=== PATIENT | male | born 1970 | race Caucasian/White ===

== ENCOUNTER 2017-06-19 08:55 | Emergency (ER) | payer SELFPAY ==
[~2017-06-19] VITALS: Ht 177.8 cm; Wt 84.0 kg
[~2017-06-19 08:55] MED LIST: ASPIRIN LOW81 M1 PO; ATORVASTATI80 MG/TAB PO; EQ ASPIRIN ADUL81 MG PO; LISINOP/HCTZ1 TA1 PO; METOPROL TAR25 M1 PO
[2017-06-19 09:03] VITALS: BP 203/137
[2017-06-19] MEDS ORDERED: MOTRIN800 MG PO (09:40)
[2017-06-19] MEDS ORDERED: TRAMADOL HYDROC50 MG PO (09:40)
[2017-06-19] MEDS ORDERED: BACTRIM DS1 TAB PO (09:40)
== END 2017-06-19 09:51 | disposition home or self-care (01) | DRG 603 ==
LOC: ED 08:55
PROC: 0H94XZZ Drainage of Neck Skin, External Approach (ICD-10-PCS; principal; 2017-06-19)
DX: L02.11 Cutaneous abscess of neck (principal); F17.210 Nicotine dependence, cigarettes, uncomplicated; I10 Essential (primary) hypertension; K13.21 Leukoplakia of oral mucosa, including tongue

== ENCOUNTER 2017-10-26 05:27 | Emergency (ER) | payer SELFPAY ==
[~2017-10-26] VITALS: Ht 177.8 cm; Wt 75.0 kg
[~2017-10-26 05:27] MED LIST changes: +BACTRIM DS1 TAB PO; +MOTRIN800 MG PO; +TRAMADOL HYDROC50 MG PO
[2017-10-26 05:57] LABS: HEMOGLOBIN 18.1 g/dl (14.0-18.0); IMMATURE GRANULOCYTES 0.5 % (0.0-1.0); MEAN CELL VOLUME 102.4 fL CALC (80.0-100.0); MEAN CORPUSCULAR HGB 36.3 pG CALC (26.0-32.0); MEAN CORPUSCULAR HGB CONC 35.5 g/L CALC (32.0-36.0); NEUT# 5.81 thou/uL (1.82-7.42); RED BLOOD COUNT 4.98 mill/uL (4.70-6.10); RED CELL DISTRI WIDTH 11.3 % (11.5-15.5)
[2017-10-26 06:15] LABS: ALBUMIN 4.4 g/dL (3.2-5.0); ALKALINE PHOSPHATASE 110 u/l (38-126); ANION GAP 20 (6-22 (CALC)); BILIRUBIN, TOTAL 0.7 mg/dL (0.0-1.4); BUN 5 mg/dL (9-20); BUN/CREATININE RATIO 6 (12-20 (CALC)); CARBON DIOXIDE 23 mmol/l (22-30); CHLORIDE 102 mmol/l (95-108); CREATININE 0.8 mg/dL (0.7-1.3); GFR > 60 ML/MIN (>=60 (CALC)); GFR FOR AFR.AMER. > 60 ML/MIN (>=60 (CALC)); SGOT/AST 48 u/l (17-59); SGPT/ALT 62 u/l (21-72); SODIUM 141 mmol/l (137-146); TOTAL PROTEIN 7.9 g/dL (6.3-8.2)
[2017-10-26 06:20] LABS: PROTHROMBIN TIME 11.3 SECONDS (9.0-12.5)
[2017-10-26 06:26] LABS: MYOGLOBIN 130 ng/mL (0 - 121)
[2017-10-26 07:25] VITALS: BP 165/105
== END 2017-10-26 07:23 | disposition short-term general hospital (02) | DRG 313 ==
LOC: ED 05:27
PROVIDERS: Emergency Medicine
DX: R07.9 Chest pain, unspecified (principal); R74.8 Abnormal levels of other serum enzymes; I10 Essential (primary) hypertension; F10.10 Alcohol abuse, uncomplicated; F17.210 Nicotine dependence, cigarettes, uncomplicated; I25.2 Old myocardial infarction

== ENCOUNTER 2021-04-14 06:25 | Observation (INO) | payer SELFPAY ==
[~2021-04-14] VITALS: Ht 177.8 cm; Wt 73.0 kg
[2021-04-14] VITALS (12 sets, daily range): BP systolic 140–194; BP diastolic 64–94
--- NOTE | 2021-04-14 06:25 | NUR ---
PT AMB TO ROOM FOR BEDSIDE TRIAGE, STROKE ALERT CALLED. DR QUILES BEDSIDE FOR EVAL. PT TO CT STAT.
[2021-04-14 06:52] LABS: GFR > 60 ML/MIN (>=60 (CALC)); GFR FOR AFR.AMER. > 60 ML/MIN (>=60 (CALC))
[2021-04-14 06:53] LABS: HEMOGLOBIN 17.4 g/dl (14.0-18.0); IMMATURE GRANULOCYTES 0.2 % (0.0-5.0); MEAN CELL VOLUME 105.7 fL CALC (80.0-100.0); MEAN CORPUSCULAR HGB 35.4 pG CALC (26.0-32.0); MEAN CORPUSCULAR HGB CONC 33.5 g/dL CAL (32.0-36.0); NEUT# 6.16 thou/uL (1.82-7.42); RED BLOOD COUNT 4.92 mill/uL (4.70-6.10); RED CELL DISTRI WIDTH 11.5 % (11.5-15.5)
--- NOTE | 2021-04-14 07:00 | NUR ---
REPORT RECEIVED FROM PRITESH RN
[2021-04-14 07:09] LABS: PROTHROMBIN TIME 10.7 SECONDS (9.0-12.5)
[2021-04-14 07:11] LABS: ALBUMIN 4.4 g/dL (3.2-5.0); ALKALINE PHOSPHATASE 109 u/l (38-126); ANION GAP 16 (6-22 (CALC)); BILIRUBIN, TOTAL 0.9 mg/dL (0.0-1.4); BUN 5 mg/dL (9-20); BUN/CREATININE RATIO 7 (12-20 (CALC)); CARBON DIOXIDE 21 mmol/l (22-30); CHLORIDE 101 mmol/l (95-108); CREATININE 0.8 mg/dL (0.7-1.3); GFR > 60 ML/MIN (>=60 (CALC)); GFR FOR AFR.AMER. > 60 ML/MIN (>=60 (CALC)); POTASSIUM 4.1 mmol/l (3.5-5.1); SGOT/AST 52 u/l (17-59); SODIUM 135 mmol/l (137-146); TOTAL PROTEIN 8.2 g/dL (6.3-8.2)
--- NOTE | 2021-04-14 08:10 | NUR ---
IV MEDS INFUSING WITHOUT DIFFICULTY. VITALS STABLE. BP IMPROVED. OBTAINING URINE SPECIMEN AT THIS TIME. CALL LIGHT WITHIN REACH.
[2021-04-14 08:33] LABS: URINE BILIRUBIN - DIPSTICK NEGATIVE (NEGATIVE); URINE BLOOD DIPSTICK NEGATIVE (NEGATIVE); URINE COLOR STRAW; URINE GLUCOSE - DIPSTICK >=1000 mg/dL (NEGATIVE); URINE KETONE NEGATIVE (NEGATIVE); URINE LEUK ESTERASE NEGATIVE (NEGATIVE); URINE NITRITE - DIPSTICK NEGATIVE (Negative); URINE PROTEIN - DIPSTICK NEGATIVE (NEG-TRACE); URINE SPECIFIC GRAVITY <=1.005; URINE UROBILINOGEN - DIPSTICK 0.2 E.U./dL (0.2)
--- NOTE | 2021-04-14 09:00 | NUR ---
NO CHANGES. IV MEDS CONTINUE TO INFUSE. PENDING ADMISSION AT THIS TIME. NO CONCERNS VOICED. BP REMAINS STABLE.
--- NOTE | 2021-04-14 09:40 | NUR ---
REPORT CALLED TO ADILIA BARROSO IN ICU.
--- NOTE | 2021-04-14 10:22 | NUR ---
PT ARRIVES TO ROOM 6 IN ICU, ALERT AND ORIENTED X 3. LUNGS CLEAR, RA. LEFT ARM NUMB, CAN STILL MOVE NORMALLY. ADMISSION ASSESSMENTS COMPLETED, NO ACUTE DISTRESS NOTED. PT REFUSED OFFER FOR NICOTINE PATCH.
--- NOTE | 2021-04-14 16:56 | NUR ---
PT HAS BEEN TO MRI AND BACK, AWAITS RESULTS. ANKLE BRACELET PLACED BY POLICE WAS CUT OFF BY THEM FOR THE EXAM AND PT IS TO HAVE IT REPLACED PRIOR TO DISCHARGE TO HOME. PT AT REST IN THE BED.
--- NOTE | 2021-04-14 20:00 | NUR ---
PATIENT IS ALERT AND ORIENTED X4. DENIES ANY PAIN, DIZINESS OR BLURRY VISION. ANSWERS QUESTIONS APPROPRIATELY, FOLLOW DIRECTIONS APPROPRIATELY. ONLY DEFICIT IS WEAK CLIENT RELATIONSHIP EXECUTIVE, OTHERWISE NEUROLOGICALLY INTACT, NO DRIFTING, NO DECREASED SENSATION, CLEAR SPEECH, COORDINATION INTACT. PT REPORTS HE IS REGAINING STRENGTH ON HIS L-ARM/HAND. NURSE ASSESSMENT PERFORMED. POC DISCUSSED FOR TONIGHT, PATIENT UNDERSTANDS AND AGREES. ALSO EDUCATED ON LIFESTYLE CHANGES TO PREVENT STROKE. IV INTACT, SALINE LOCKED, SR ON TELEMETRY, HR 70'S. SPO2 97%, ON RA, NO SOB NOTED. SKIN INTACT, WARM/DRY. SELF REPOSITIONS. USES URINAL, URINE CLEAR/YELLOW. CALL LIGHT WITHIN REACH.
--- NOTE | 2021-04-14 20:05 | NUR ---
PATIENT WAS MOVED FROM ICU 6 TO ICU 7 DUE TO BP MONITOR NOT WORKING. BP TAKEN Q1H OR NEEDED. BP NOW IS 194/79 MMHG, WILL CONTINUE TO MONITOR AND PROVIDE PRN BP MEDS IV.
--- NOTE | 2021-04-14 21:15 | NUR ---
PATIENT ABLE TO SWALLOW MEDICATION, WAS EDUCATED ABOUT IT. TOLERATES INSULIN AND LOVENOX INJECTION. REQUESTS FOOD AND A DRINK, WILL PROVIDE. NO OTHER COMPLAINTS OR NEEDS AT THIS TIME.
[2021-04-15] VITALS (12 sets, daily range): BP systolic 135–180; BP diastolic 77–103
--- NOTE | 2021-04-15 00:30 | NUR ---
patient is awake, no neuro deficits noted. reports he is not able to sleep. watches tv. no needs at thi time. call light within reach.
--- NOTE | 2021-04-15 05:24 | NUR ---
PATIENT AWAKENS EASILY WHEN SPOKEN TO. NO COMPLAINTS. NO NEW NEURO DEFICITS NOTED. CALL LIGHT WITHIN REACH. AFEBRILE. SR ON TELEMETRY, HR 70'S. BP WNL. SPO2 97% ON RA.
[2021-04-15 05:26] LABS: HEMATOCRIT 49.1 % (39.0-50.0); HEMOGLOBIN 16.5 g/dl (14.0-18.0); MEAN CELL VOLUME 106.7 fL CALC (80.0-100.0); MEAN CORPUSCULAR HGB 35.9 pG CALC (26.0-32.0); MEAN CORPUSCULAR HGB CONC 33.6 g/dL CAL (32.0-36.0); RED BLOOD COUNT 4.6 mill/uL (4.70-6.10); RED CELL DISTRI WIDTH 11.5 % (11.5-15.5)
[2021-04-15 05:46] LABS: ANION GAP 12 (6-22 (CALC)); BUN 11 mg/dL (9-20); BUN/CREATININE RATIO 13 (12-20 (CALC)); CALCULATED LDLCHOLESTEROL 111 mg/dL (62-129 (CALC)); CARBON DIOXIDE 25 mmol/l (22-30); CHLORIDE 103 mmol/l (95-108); CHOLESTEROL HDL RATIO 3.5 (<4.4 (CALC)); CREATININE 0.8 mg/dL (0.7-1.3); GFR > 60 ML/MIN (>=60 (CALC)); GFR FOR AFR.AMER. > 60 ML/MIN (>=60 (CALC)); HDL CHOLESTEROL 57 mg/dL (>=40); MAGNESIUM 1.9 mg/dL (1.6-2.3); POTASSIUM 4.6 mmol/l (3.5-5.1); SODIUM 136 mmol/l (137-146); TOTAL CHOLESTEROL 199 mg/dl (0-199); TOTAL TRIGLYCERIDES 155 mg/dl (30-149); VLDL CHOLESTROL 31 mg/dl (5-56 (CALC))
--- NOTE | 2021-04-15 08:49 | NUR ---
Patient resting comfortably in bed. States left arm "feels back to normal". No complaints and call light within reach. RN will continue to monitor.
[2021-04-15] MEDS ORDERED: ATORVASTATIN CA40 MG PO (10:07)
[2021-04-15] MEDS ORDERED: PLAVIX75 MG PO (10:07)
[2021-04-15] MEDS ORDERED: ADLT ASA LOW81 MG PO (10:07)
[2021-04-15] MEDS ORDERED: COZAAR50 MG PO (10:09)
[2021-04-15] MEDS ORDERED: METFORMIN500 M2 PO (10:11)
--- NOTE | 2021-04-15 12:27 | NUR ---
Patient recieved and signed discharge paperwork per discharge order. Patient in understanding of instructions for self care/ medications. RN educated patient on medications and self care.Patient verbalizes understanding and will follow up with pcp. IV removed and excorted/ ambulated down to the lobby.
== END 2021-04-15 12:13 | disposition home or self-care (01) | DRG 948 ==
LOC: ED 06:25 → ED-I 08:30 → ED 08:33 → ICU 08:34
PROVIDERS: Emergency Medicine; Nurse Practitioner; ADMIT Internal Medicine; ATTEND Internal Medicine
DX: R53.1 Weakness (principal); R20.2 Paresthesia of skin; I10 Essential (primary) hypertension; E11.65 Type 2 diabetes mellitus with hyperglycemia; I25.10 Atherosclerotic heart disease of native coronary artery without angina pectoris; F10.10 Alcohol abuse, uncomplicated; F17.200 Nicotine dependence, unspecified, uncomplicated; I25.2 Old myocardial infarction; T50.916A Underdosing of multiple unspecified drugs, medicaments and biological substances, initial encounter; Y90.1 Blood alcohol level of 20-39 mg/100 ml; Z95.5 Presence of coronary angioplasty implant and graft; Z91.128 Patient's intentional underdosing of medication regimen for other reason; Z91.19 Patient's noncompliance with other medical treatment and regimen; Z20.822 Contact with and (suspected) exposure to COVID-19
CPT/HCPCS: J1650; Q9967

== ENCOUNTER 2021-09-01 10:06 | Emergency (ER) | payer SELFPAY ==
[~2021-09-01] VITALS: Ht 177.8 cm; Wt 79.5 kg
[2021-09-01] VITALS (7 sets, daily range): BP systolic 156–204; BP diastolic 106–118
[~2021-09-01 10:06] MED LIST changes: +ADLT ASA LOW81 MG PO; +ATORVASTATIN CA40 MG PO; +COZAAR50 MG PO; +METFORMIN500 M2 PO; +PLAVIX75 MG PO
[2021-09-01 10:40] LABS: HEMATOCRIT 51.4 % (39.0-50.0); HEMOGLOBIN 17.9 g/dl (14.0-18.0); IMMATURE GRANULOCYTES 0.2 % (0.0-5.0); MEAN CORPUSCULAR HGB 36.2 pG CALC (26.0-32.0); MEAN CORPUSCULAR HGB CONC 34.8 g/dL CAL (32.0-36.0); NEUT# 8.67 thou/uL (1.82-7.42); RED BLOOD COUNT 4.94 mill/uL (4.70-6.10); RED CELL DISTRI WIDTH 11.4 % (11.5-15.5)
[2021-09-01 10:45] LABS: ALBUMIN 4.8 g/dL (3.2-5.0); ALKALINE PHOSPHATASE 122 u/l (38-126); ANION GAP 18 (6-22 (CALC)); BILIRUBIN, TOTAL 0.7 mg/dL (0.0-1.4); BUN 5 mg/dL (9-20); BUN/CREATININE RATIO 6 (12-20 (CALC)); CARBON DIOXIDE 21 mmol/l (22-30); CHLORIDE 102 mmol/l (95-108); CREATININE 0.8 mg/dL (0.7-1.3); GFR > 60 ML/MIN (>=60 (CALC)); GFR FOR AFR.AMER. > 60 ML/MIN (>=60 (CALC)); LIPASE 73 u/l (23-300); POTASSIUM 4.2 mmol/l (3.5-5.1); SGOT/AST 88 u/l (17-59); SODIUM 136 mmol/l (137-146); TOTAL PROTEIN 8.3 g/dL (6.3-8.2)
[2021-09-01 10:56] LABS: MYOGLOBIN 189 ng/mL (0 - 121)
[2021-09-01 11:13] LABS: ACT PARTIAL THROMBO TIME 23.9 SECONDS (20.0-32.5)
== END 2021-09-01 12:05 | disposition short-term general hospital (02) | DRG 282 ==
LOC: ED 10:06
PROVIDERS: Emergency Medicine
DX: I21.4 Non-ST elevation (NSTEMI) myocardial infarction (principal); I25.10 Atherosclerotic heart disease of native coronary artery without angina pectoris; E11.65 Type 2 diabetes mellitus with hyperglycemia; I10 Essential (primary) hypertension; E78.5 Hyperlipidemia, unspecified; J44.9 Chronic obstructive pulmonary disease, unspecified; F10.10 Alcohol abuse, uncomplicated; I25.2 Old myocardial infarction; F17.210 Nicotine dependence, cigarettes, uncomplicated; T50.916A Underdosing of multiple unspecified drugs, medicaments and biological substances, initial encounter; Z91.120 Patient's intentional underdosing of medication regimen due to financial hardship; Z20.822 Contact with and (suspected) exposure to COVID-19
CPT/HCPCS: J1644

== ENCOUNTER 2022-02-07 06:29 | Observation (INO) | payer SELFPAY ==
[2022-02-07] VITALS (23 sets, daily range): BP systolic 126–240; BP diastolic 79–140
[~2022-02-07] VITALS: Ht 177.8 cm; Wt 78.0 kg
--- NOTE | 2022-02-07 06:41 | NUR ---
PT AMBULATED TO ROOM 13. PT CONNECTED TO MONITOR, EKG ALREADY COMPLETED. INTERMITTENT CP BEGINNING THIS AM. PT CONNECTED TO MONITOR.
--- NOTE | 2022-02-07 06:49 | NUR ---
AWAITING ORDERS, WILL CONT TO MONITOR. HTN IS WNL FOR PT.
--- NOTE | 2022-02-07 07:00 | NUR ---
REPORT RECEIVED FROM ADILIA JIMENEZ
[2022-02-07] MEDS ORDERED: ASPIRIN81 MG PO (07:17)
--- NOTE | 2022-02-07 07:17 | NUR ---
BROWN SAWYER AT BEDSIDE TO SEE PATIENT. VERBAL ORDER FROM TO REMOVE NITRO PASTE. ORDER COMPLETED. ONLY GIVEN HYDROLAZINE IV PER MD VERBAL ORDER.
[2022-02-07 07:30] LABS: HEMATOCRIT 50.9 % (39.0-50.0); HEMOGLOBIN 17.5 g/dl (14.0-18.0); IMMATURE GRANULOCYTES 0.4 % (0.0-5.0); MEAN CELL VOLUME 107.8 fL CALC (80.0-100.0); MEAN CORPUSCULAR HGB 37.1 pG CALC (26.0-32.0); MEAN CORPUSCULAR HGB CONC 34.4 g/dL CAL (32.0-36.0); NEUT# 7.26 thou/uL (1.82-7.42); RED BLOOD COUNT 4.72 mill/uL (4.70-6.10)
--- NOTE | 2022-02-07 07:30 | NUR ---
PATIENT REPORTS NOT TAKING MEDICATIONS BESIDES 81 MG ASPIRIN FOR PAST THREE WEEKS. REPORTS MEDICATIONS MAKING HIM SLEEPY.
[2022-02-07 08:15] LABS: D-DIMER 0.38 mg/L (0.19-0.60)
--- NOTE | 2022-02-07 08:15 | NUR ---
PATIENT RESTING ON STRETCHER, NO SIGNS OF DISTRESS NOTED. PATIENT DENIES ANY CURRENT CHEST PAIN.
[2022-02-07 08:16] LABS: ALKALINE PHOSPHATASE 129 u/l (38-126); BILIRUBIN, TOTAL 0.5 mg/dL (0.0-1.4); BUN 5 mg/dL (9-20); BUN/CREATININE RATIO 7 (12-20 (CALC)); CHLORIDE 107 mmol/l (95-108); CREATININE 0.7 mg/dL (0.7-1.3); GFR FOR AFR.AMER. > 60 ML/MIN (>=60 (CALC)); GFR OTHER RACES > 60 ML/MIN (>=60 (CALC)); LIPASE 49 u/l (23-300); SGOT/AST 53 u/l (17-59); SODIUM 137 mmol/l (137-146); TOTAL PROTEIN 7.1 g/dL (6.3-8.2)
[2022-02-07 08:17] LABS: ACT PARTIAL THROMBO TIME 23.6 SECONDS (20.0-32.5); PROTHROMBIN TIME 10.5 SECONDS (9.0-12.5)
[2022-02-07 08:23] LABS: ALBUMIN 3.8 g/dL (3.2-5.0); ANION GAP 7 (6-22 (CALC)); CARBON DIOXIDE 27 mmol/l (22-30)
[2022-02-07 08:26] LABS: MYOGLOBIN 27 ng/mL (0 - 121)
--- NOTE | 2022-02-07 09:10 | NUR ---
COVID SWAB COLLECTED, WAITING ON RESULTS FOR ADMIT. TRAY ORDERED PER PATIENT REQUEST
--- NOTE | 2022-02-07 09:35 | NUR ---
WAITING ON BREAKFAST TRAY. PATIENT RESTING ON STRETCHER, NO SIGNS OF DISTRESS NOTED.
--- NOTE | 2022-02-07 10:37 | NUR ---
PT ADMITTED TO [facility], PT TRANSPORTED TO FLOOR VIA STRETCHER BY NICKY PAT.
--- NOTE | 2022-02-07 10:41 | NUR ---
PT [facility] FLOOR AT 1041 VIA STRETCHER WITH LAP GRINDER. PT ABLE TO AMBULATE TO STRETCHER TO BED VIA STANDY BY. ORIENTATED PT TO ROOM/CALL [facility]UR[facility] LIGHT SYSTEM. PT INDICATED UNDERSTANDING. ASSESSMENT ADMISSION ALLOWED. IV LAC 18G SL FLUSHED WITH BLOOD RETURN PT ABLE TO ANSWER QUESTIONS. PT IS A&OX3. LUNG SOUNDS ARE CLEAR UPPER/LOWER LOBES ANTERIOR/POSTERIOR. NODULE NOTED TO THE LEFT UPPER BACK. PT UNAWARE OF NODULE.PICTURE TAKEN SEE CHART. HEART SOUNDS REGULAR. TELE MONITOR IN PLACE, CONTINOUS MONITORING PER ED. BOWEL SOUNDS ACTIVE X4. RADIAL/PEDAL PUSLE STRONG. PT ABLE TO MOVE ALL EXTREMEITES, ABLE TO FOLLOW COMMANDS. BP: ON ARRIVAL 188/109. PT BREATHING EVEN A AND UNLABORED. DENIES SOB/DIAPHORESIS/NV/CHEST PAIN MD/RICE DRIER OPERATOR AWARE. FALL/SAFTEY PRECAUTION IN PLACE. CALL LIGHT WITHIN REACH
--- NOTE | 2022-02-07 10:45 | NUR ---
Admission Note Report Given to: ADILIA ESPINAL Transported by: Wheelchair X Stretcher Transported with: X Nurse Transporter X Patent IV O2 X Ball Worker Location: ICU X MS2 PATIENT TO ROOM, TAKE BOOTS AND CLOTHING WITH HIM. BEDSIDE REPORT GIVEN. CARE RELINQUISHED.
--- NOTE | 2022-02-07 12:07 | NUR ---
REASSESSED BP: 165/98 MEDICATED SEE EMAR. NO DISTRESS NOTED. BREATHING EVEN AND UNLABORED. FALL/SAFTEY PRECAUTION IN PLACE. CALL LIGHT WITHIN REACH
--- NOTE | 2022-02-07 15:37 | NUR ---
PT RESTING IN BED UPON ENTERING ROOM. BP: 147/87 HR: 100 PT STATES NO NEEDS AT THIS TIME. FALL/SAFTEY PRECAUTION IN PLACE. CALL LIGHT WITHIN REACH
--- NOTE | 2022-02-07 16:33 | NUR ---
PT RESTING IN BED. BREATHING EVEN AND UNLABORED. STATES NO NEEDS AT THIS TIME. TELE MONITOR IN PLACE. CONTINOUS MONITORING PER ED. IV PATENT. FALL/SAFTEY PERCAUTION IN PLACE. CALL LIGHT WITHIN REACH
--- NOTE | 2022-02-07 17:28 | NUR ---
PT TEMP 99.3 MEDICATED SEE EMAR. REASSESSED TEMP 98.3 PT BREATHING EVEN AND UNLABORED. NO DISTRESS NOTED. FALL/SAFTEY PRECAUTION IN PLACE. CALL LIGHT WITHIN REACH
[2022-02-08 00:15] VITALS: BP 141/87
[2022-02-08 04:00] VITALS: BP 135/77
[2022-02-08 05:33] LABS: HEMATOCRIT 47.4 % (39.0-50.0); HEMOGLOBIN 16.1 g/dl (14.0-18.0); IMMATURE GRANULOCYTES 0.3 % (0.0-5.0); MEAN CORPUSCULAR HGB 37.7 pG CALC (26.0-32.0); NEUT# 5.78 thou/uL (1.82-7.42); RED BLOOD COUNT 4.27 mill/uL (4.70-6.10); RED CELL DISTRI WIDTH 11.3 % (11.5-15.5)
--- NOTE | 2022-02-08 05:38 | NUR ---
PT A/O X4, NO OVERNIGHT EVENTS, CIWA- 0, NO PAIN, NO DISTRESS NOTED, PT IN BED ;LEEP, BED IN LOW POSITION, CALL LIGHT IN REACH
[2022-02-08 05:47] LABS: ANION GAP 7 (6-22 (CALC)); BUN 10 mg/dL (9-20); BUN/CREATININE RATIO 13 (12-20 (CALC)); CARBON DIOXIDE 24 mmol/l (22-30); CHLORIDE 106 mmol/l (95-108); CREATININE 0.8 mg/dL (0.7-1.3); GFR FOR AFR.AMER. > 60 ML/MIN (>=60 (CALC)); GFR OTHER RACES > 60 ML/MIN (>=60 (CALC)); MAGNESIUM 1.8 mg/dL (1.6-2.3); POTASSIUM 3.9 mmol/l (3.5-5.1); SODIUM 133 mmol/l (137-146)
[2022-02-08 06:03] LABS: TSH, 3RD GENERATION 0.88 uIU/mL (0.47 - 4.68)
[2022-02-08 06:42] VITALS: BP 174/99
--- NOTE | 2022-02-08 07:00 | NUR ---
REPORT RECIEVED FROM PROTECTIVE SERVICES OFFICERSALES AND MARKETING ANALYST
--- NOTE | 2022-02-08 08:00 | NUR ---
PT PACING THROUGH ROOM AGITATED UPON ENETERIN ROOM. VISIBLE ARMS SHAKING BILATERALLY. CIWA ASSESSMENT PERFORMED SCORE OF 9. IV LAC 18G FLUSHED. SL TELE MONTIOR IN [place], CONTINOUS MONITORING PER ED. BLOOD GLUCOSE CHECK: 225 COVERED PER SLIDING SCALE. PT AGITATED HOWEVER STILL ABLE TO OBEY COMMANDS. STATES NO PAIN. ASSESSMENT PERFORMED. FALL/SAFTEY PERCAUITON IN PLACE. CALL LIGHT WITHIN REACH.
--- NOTE | 2022-02-08 08:12 | NUR ---
PATIENT CONCERNED ABOUT PROBATION MONTIORING SYSTEM. [facility] PROBATION OFFICE CALLED AND NOTIFED OF PATIENT'S ADMISSION PER PATIENT'S REQUEST. PROBATION OFFICE STATED LONG HE IS IN THE HOSPITAL HE WILL NOT BE IN VIOLATION OF HIS PROBATION. THE PROBATION OFFICE WILL CALL THE HOSPTIAL IF ANY OTHER DOCUMENTION IS NEEDED.
--- NOTE | 2022-02-08 09:00 | NUR ---
PT RESTING IN BED STATES NO FEELING OF DIZZINESS. PT AGITATION/ANXIETY HAS SUBSIDED. MEDICATED FROM CIWA PROTOCAL SEE EMAR. STATES NO NEEDS AT THIS TIME. TELE MONITOR IN PLACE, CONTINOUS MONITORING PER ED. FALL/SAFTEY PRECAUTION IN PLACE. CALL LIGHT WITHIN REACH.
[2022-02-08] MEDS ORDERED: ATORVASTATIN CA40 MG PO (10:17)
[2022-02-08] MEDS ORDERED: CARVEDILOL6.25 MG PO (10:17)
[2022-02-08] MEDS ORDERED: PLAVIX75 MG PO (10:17)
[2022-02-08] MEDS ORDERED: LISINOPRIL10 MG PO (10:18)
[2022-02-08] MEDS ORDERED: METFORMIN500 M2 PO (10:19)
[2022-02-08 10:34] VITALS: BP 143/92
--- NOTE | 2022-02-08 11:13 | NUR ---
Discharge instructions given. Patient verbalizes understanding of same. Discharged in stable condition via Wheelchair to Home with staff. All belongings sent with pt. JEREMÍAS ASSESSMENT PERFORMED. PT A&OX3. GAIT IS STEADY ABLE TO MOVE ALL EXTREMETIES. SPEECH IS CLEAR.
== END 2022-02-08 11:13 | disposition home or self-care (01) | DRG 313 ==
LOC: ED 06:29 → ED-I 08:35 → ED 09:09 → MS2 09:10
PROVIDERS: Family Medicine; Nurse Practitioner; ADMIT Internal Medicine; ATTEND Internal Medicine
DX: R07.9 Chest pain, unspecified (principal); I10 Essential (primary) hypertension; E11.9 Type 2 diabetes mellitus without complications; F10.10 Alcohol abuse, uncomplicated; I25.10 Atherosclerotic heart disease of native coronary artery without angina pectoris; I25.2 Old myocardial infarction; F17.200 Nicotine dependence, unspecified, uncomplicated; T50.916A Underdosing of multiple unspecified drugs, medicaments and biological substances, initial encounter; Z91.128 Patient's intentional underdosing of medication regimen for other reason; Z79.82 Long term (current) use of aspirin; Z95.5 Presence of coronary angioplasty implant and graft; Z20.822 Contact with and (suspected) exposure to COVID-19
CPT/HCPCS: G0378

== ENCOUNTER 2024-09-11 03:25 | Emergency (ER) | payer SELFPAY ==
[~2024-09-11] VITALS: Ht 177.8 cm; Wt 72.6 kg
[~2024-09-11 03:25] MED LIST changes: +ASPIRIN81 MG PO; +CARVEDILOL6.25 MG PO; +LISINOPRIL10 MG PO
[2024-09-11] MEDS ORDERED: SODIUM CHLORIDE 0.9% 1,000 ML IV STA (03:38)
[2024-09-11] MEDS ORDERED: Pantoprazole Sodium 40 MG VIAL (Protonix) IV STA (03:38)
[2024-09-11] MEDS ORDERED: KETOROLAC TROMETHAMINE 30 MG/ML SDV IV ONE (03:40)
[2024-09-11] MEDS ORDERED: DiphenhydrAMINE HCL 50 MG/ML SDV IV ONE (03:40)
[2024-09-11] MEDS ORDERED: PROMETHAZINE HCL 25 MG/ML AMP IV ONE (03:40)
[2024-09-11 04:04] LABS: BASO% 0.5 % (0-3); EOS% 2.9 % (0-8); HEMATOCRIT 43.3 % (39.0-50.0); HEMOGLOBIN 14.6 g/dl (14.0-18.0); IMMATURE GRANULOCYTES 0.7 % (0.0-5.0); LYMPH% 16.4 % (15-41); MEAN CELL VOLUME 109.1 fL CALC (80.0-100.0); MEAN CORPUSCULAR HGB 36.8 pG CALC (26.0-32.0); MEAN CORPUSCULAR HGB CONC 33.7 g/dL CAL (32.0-36.0); MONO% 11.1 % (2-13); NEUT# 5.96 thou/uL (1.82-7.42); NEUT% 68.4 % (42-76); RED BLOOD COUNT 3.97 mill/uL (4.70-6.10); RED CELL DISTRI WIDTH 11.4 % (11.5-15.5)
[2024-09-11 04:13] LABS: CREATININE 0.9 mg/dL (0.7-1.3); POTASSIUM 3.9 mmol/l (3.5-5.1); TOTAL PROTEIN 7.3 g/dL (6.3-8.2)
[2024-09-11 04:14] LABS: BILIRUBIN, TOTAL 1.3 mg/dL (0.2-1.3)
[2024-09-11 05:00] VITALS: BP 161/88
[2024-09-11] MEDS ORDERED: SODIUM CHLORIDE 0.9% 1,000 ML IV ONE (05:30)
[2024-09-11 05:31] VITALS: BP 147/78
[2024-09-11 05:53] LABS: URINE BILIRUBIN - DIPSTICK Negative (NEGATIVE); URINE BLOOD DIPSTICK Negative (NEGATIVE); URINE GLUCOSE - DIPSTICK Negative (NEGATIVE); URINE KETONE Negative (NEGATIVE); URINE LEUK ESTERASE Negative (NEGATIVE); URINE NITRITE - DIPSTICK Negative (Negative); URINE PH 6.5 (4.5-8.0); URINE PROTEIN - DIPSTICK Negative (NEG-TRACE); URINE UROBILINOGEN - DIPSTICK 0.2 E.U./dL (0.2)
[2024-09-11 06:00] VITALS: BP 165/93
[2024-09-11 06:09] LABS: URINE COLOR Yellow
[2024-09-11] MEDS ORDERED: TEMAZEPAM30 MG PO (06:32)
[2024-09-11 06:49] VITALS: BP 165/93
== END 2024-09-11 06:50 | disposition home or self-care (01) | DRG 305 ==
LOC: ED 03:25
PROVIDERS: Family Medicine
DX: I10 Essential (primary) hypertension (principal); G47.00 Insomnia, unspecified; F17.210 Nicotine dependence, cigarettes, uncomplicated; Z86.79 Personal history of other diseases of the circulatory system; Z91.148 Patient's other noncompliance with medication regimen for other reason; F10.10 Alcohol abuse, uncomplicated
CPT/HCPCS: J1200; J2470; J2550; Q9967